=== PATIENT | male | born 1995 | race Caucasian/White ===

== ENCOUNTER 2017-09-15 00:06 | Emergency (ER) | payer BC, SELFPAY ==
[2017-09-15] VITALS (7 sets, daily range): BP systolic 104–113; BP diastolic 52–71; PULSE 104–145; RESP 15–21; TEMP 37.3–38; O2SAT 98–100; BMI 20.9
[2017-09-15] MEDS: 0.9% Normal Saline 1,000 ML 999 ML IV (01:23)
[2017-09-15 01:25] LABS: Bacteria 0 SEEN /hpf (None Seen); Red Blood Cells-Urine 0 SEEN /hpf (0-5); Squamous Epithelial Cells - UA 0 SEEN /hpf (0-5)
[2017-09-15 01:36] LABS: Color, Urine Yellow (Yellow); Glucose, Dipstick Normal (Normal); Ketone-Dipstick Negative (Negative); Leukocyte Esterase-Dipstick 25 /ul (Negative); Nitrite-Dipstick Negative (Negative); Occult Blood-Urine Negative /ul (Negative); Protein-Dipstick 15 mg/dl (Negative); Specific Gravity, Urine 1.025 (1.002-1.030); Urine Bilirubin Dipstick Negative (Negative); Urine Clarity Clear (Clear); Urine Urobilinogen 1 mg/dl (Normal)
[2017-09-15 01:38] LABS: International Normalized Ratio 2.2; Prothrombin Time (Protime)PT. 23.3 SECONDS (11.7-14.9)
[2017-09-15 01:39] LABS: Partial Thromboplast Time 53.4 Seconds (24.1-36.2)
--- NOTE | 2017-09-15 01:40 | RAD_ITS ---
STUDY: X-RAY CHEST REASON FOR EXAM: Male, 21 years old. Fever after chemotherapy. History of large B-cell lymphoma. TECHNIQUE: PA and lateral chest. COMPARISON: None. FINDINGS: Right internal jugular port with the tip in the lower superior vena cava. The lungs are clear and expanded. There is no demonstrated pleural abnormality. No pneumothorax. Normal size heart. Normal mediastinum and chelsey. Normal visualized pulmonary arteries. Normal visualized aortic arch and descending thoracic aorta. Normal visualized thoracic spine. Normal visualized ribs, clavicles, and shoulders. There is no demonstrated abnormality of the visualized soft tissue structures of the upper abdomen. RAD/Chest PA and Lateral IMPRESSION: No acute cardiopulmonary disease. Lungs are clear. Electronically Signed: Trace Daigle MD at 2:23 EST , Service support ,
[2017-09-15 01:41] LABS: Absolute Lymphocyte Count 0.12 X10^3/ul (0.83-4.51); Absolute Neutrophil Count 0.1 X10^3/uL (2.0-7.7); Hematocrit 19.6 % (40-54); Hemoglobin 6.6 g/dl (13.0-16.5); Lymphocyte # 0.12 X10^3/ul (4.0); Mean Corp Hgb Conc 33.7 g/gl (32-36); Mean Corpuscular Hgb 28.6 pg (27.0-32.0); Mean Corpuscular Volume 84.8 fL (80-94); Mean Platelet Vol. 10.5 fl (6.2-12.0); Monocyte# 0.03 X10^3/uL; Neutrophil # 0.05 X10^3/uL (2.7-7.7); RBC Distribution Width CV 14.1 % (11.6-14.6); RBC Distribution Width SD 43.6 fl (35.1-43.9); Red Blood Count 2.31 M/mm3 (4.6-6.2)
[2017-09-15 01:49] LABS: White Blood Count 0.2 K/mm3 (4.4-11.0)
[2017-09-15 01:50] LABS: Differential Indicated SCAN CRITERIA MET; POSITIVE COUNT YES; POSITIVE DIFFERENTIAL YES; POSITIVE MORPHOLOGY YES; Platelet Count 41 K/mm3 (150-450)
[2017-09-15 02:03] LABS: Mucous, Urine RARE /hpf (<or=2+); White Blood Cells 0-5 SEEN /hpf (0-5)
[2017-09-15 02:08] LABS: Differential Comment SCANNED
[2017-09-15 02:09] LABS: ALB/GLOB Ratio 1.4 RATIO (0.9-2.4); AST(SGOT) 8 U/L (15-37); Alanine Aminotransfer ALT/SGPT 35 U/L (16-61); Albumin, Serum 3.9 g/dL (3.2-5.0); Alkaline Phosphatase 71 U/L (45-117); Anion Gap 9 (5-15); BUN 16 mg/dL (7-18); BUN/Creat Ratio 16.4 RATIO (10-20); Calcium,Total 8.5 mg/dL (8.5-10.1); Chloride 99 mmol/L (98-107); Creatinine, Serum 0.98 mg/dL (0.70-1.30); EST Glomerular Filtration Rate 101 mL/min (>60); Est Glom Filt Rate - Afr Amer 122 mL/min (>60); Estimated Creatinine Clearance 107.72 ml/min; Globulin 2.8 g/dL (2.2-4.2); Glucose 128 mg/dL (74-106); Magnesium 1.9 mg/dL (1.6-2.6); Phosphorus 4.9 mg/dL (2.5-4.9); Potassium 3.7 mmol/L (3.5-5.1); Protein, Total 6.7 g/dL (6.4-8.2); Sodium Level 135 mmol/L (136-145)
[2017-09-15 02:25] LABS: Lactic Acid 2.2 mmol/L (0.4-2.0)
--- NOTE | 2017-09-15 02:25 | ED.RN ---
MD AWARE OF LACTIC ACID 2.2
--- NOTE | 2017-09-15 03:15 | NURSING ---
REPAGED DR. GRIFFIN (VENDOR SPECIALIST FOR DR. POWELL)
--- NOTE | 2017-09-15 03:17 | NURSING ---
DR. GRIFFIN CALLED BACK
--- NOTE | 2017-09-15 03:39 | ED.VISSUMM ---
- ER Visit Summary Date of Service: 09/15/17 Chief Complaint: Fever History of Present Illness: The patient is a 21 M who has a history of large B-cell lymphoma. He sees Dr. Woo at [facility] for this. Reports his last dose of chemo was 5 days ago. His last dose of Neulasta was 3 days ago. He developed a fever today to 100.4?. He complains of a sore throat that is 6 out of 10 in severity. He denies any ear pain, cough, shortness of breath, abdominal pain, nausea, vomiting, diarrhea, dysuria, rash, headache, or other complaints. Physical Examination: Vitals: Stable. Afebrile. General: Well-nourished and well-developed. Head: Normocephalic atraumatic. HEENT: Pharyngeal erythema. No tonsillar exudate or enlargement. Neck: Supple, no lymphadenopathy. No JVD. Nontender. Cardiovascular: Tachycardic regular rhythm. No murmurs. Respiratory: No respiratory distress. Clear to auscultation bilaterally. Abdominal: Soft, nontender, nondistended, normal bowel sounds. No guarding, rebound, or peritoneal signs. Back: Nontender. Extremities: Nontender, no edema. Skin: Normal color, no rash. Neurologic: Alert and oriented ?3. Cranial nerves II through XII are intact. Normal strength and sensation. Psych: Normal affect. Test Results: Chest x-ray is normal. UA is negative. Strep is negative. CBC is marked for white count of 0.2 with 25% segmented neutrophils giving an absolute neutrophil count of 50. H&H is 6.6 and 19.6. Platelets of 41. Chem-7 is marked for sodium 135 and glucose 128. LFTs marked for total bili 1.2 and AST of 8. INR is 2.2. PTT is 53.4. Lactic acid is 2.2. Emergency Department Course and Treatment: Patient was given a dose of meropenem IV and a liter of normal saline. He is resting comfortably. Treatment Plan: She was discussed with Dr. Hancock, call for his oncologist, she states that the patient requires admission for IV antibiotics. I discussed this with the family. He is received all of his cancer care at [facility] He will be transferred there for further evaluation and treatment. Disposition: Transferred in serious condition. Impression: 1. Neutropenic fever. 2. Pancytopenia. 3. Absolute neutrophil count of 50. 4. Large B-cell lymphoma. 5. Severe sepsis. 6. Critical care time 30 minutes. This note was generated with [employer] dictation software. It may contain incorrect words, spelling, and punctuation that were not noted in review of the chart prior to signing ED Disposition - Plan for ED Patient: Chief Complaint: Fever Referrals: Jayme Rodgers DO [Primary Care Provider] -
--- NOTE | 2017-09-15 03:52 | ED.DCSUM_ITS ---
- ER Visit Summary Date of Service: 09/15/17 Chief Complaint: Fever History of Present Illness: The patient is a 21 M who has a history of large B- cell lymphoma. He sees Dr. Woo at [facility] for this. Reports his last dose of chemo was 5 days ago. His last dose of Neulasta was 3 days ago. He developed a fever today to 100.4?. He complains of a sore throat that is 6 out of 10 in severity. He denies any ear pain, cough, shortness of breath, abdominal pain, nausea, vomiting, diarrhea, dysuria, rash, headache, or other complaints. Physical Examination: Vitals: Stable. Afebrile. General: Well-nourished and well-developed. Head: Normocephalic atraumatic. HEENT: Pharyngeal erythema. No tonsillar exudate or enlargement. Neck: Supple, no lymphadenopathy. No JVD. Nontender. Cardiovascular: Tachycardic regular rhythm. No murmurs. Respiratory: No respiratory distress. Clear to auscultation bilaterally. Abdominal: Soft, nontender, nondistended, normal bowel sounds. No guarding, rebound, or peritoneal signs. Back: Nontender. Extremities: Nontender, no edema. Skin: Normal color, no rash. Neurologic: Alert and oriented ?3. Cranial nerves II through XII are intact. Normal strength and sensation. Psych: Normal affect. Test Results: Chest x-ray is normal. UA is negative. Strep is negative. CBC is marked for white count of 0.2 with 25% segmented neutrophils giving an absolute neutrophil count of 50. H&H is 6.6 and 19.6. Platelets of 41. Chem- 7 is marked for sodium 135 and glucose 128. LFTs marked for total bili 1.2 and AST of 8. INR is 2.2. PTT is 53.4. Lactic acid is 2.2. Emergency Department Course and Treatment: Patient was given a dose of meropenem IV and a liter of normal saline. He is resting comfortably. Treatment Plan: She was discussed with Dr. Hancock, call for his oncologist, she states that the patient requires admission for IV antibiotics. I discussed this with the family. He is received all of his cancer care at [facility]. He will be transferred there for further evaluation and treatment. Disposition: Transferred in serious condition. Impression: 1. Neutropenic fever. 2. Pancytopenia. 3. Absolute neutrophil count of 50. 4. Large B-cell lymphoma. 5. Severe sepsis. 6. Critical care time 30 minutes. This note was generated with [employer] dictation software. It may contain incorrect words, spelling, and punctuation that were not noted in review of the chart prior to signing ED Disposition - Plan for ED Patient: Chief Complaint: Fever Referrals: Jayme Rodgers DO [Primary Care Provider] -
--- NOTE | 2017-09-15 04:16 | NURSING ---
[facility] NO AVAILABILITY TILL AFTER 7 AM [facility] WILL BE HERE WITH IN 45 MINUTES TO 1 HOUR
[2017-09-15 05:23] LABS: Reflex Lactate? Y
[2017-09-17 09:59] LABS: Pathologist Review Reviewed
== END 2017-09-15 05:27 | disposition short-term general hospital (02) ==
LOC: ED 00:48
PROVIDERS: Emergency Provider Emergency Medicine; Family Provider Pediatrics; PCP Family Medicine
DX: A41.9 Sepsis, unspecified organism (principal); R65.20 Severe sepsis without septic shock; D70.9 Neutropenia, unspecified; R50.81 Fever presenting with conditions classified elsewhere; C83.30 Diffuse large B-cell lymphoma, unspecified site
CPT/HCPCS: 71046; 80053; 81001; 83605; 83735; 84100; 85025; 85610; 85730; 87040; 87086; 87880; 96361; 96365; 99284; J2185; J7030; A4216

== ENCOUNTER 2019-11-07 18:44 | Emergency (ER) | payer BC, SELFPAY ==
[2019-11-07 18:45] VITALS: BP 154/82; PULSE 87; RESP 16; TEMP 37.6; O2SAT 99; BMI 24.3
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
[2019-11-07] MEDS: Diphth,Pertuss(Acell),Tet Vac 0.5 ML Vial IM (19:19)
[2019-11-07] MEDS: HYDROcodone Bitartrate/Apap 5/325 Tablet PO (19:24)
[2019-11-07 19:37] VITALS: RESP 16
== END 2019-11-07 19:39 | disposition home or self-care (01) ==
LOC: ED 19:09
PROVIDERS: Emergency Provider Emergency Medicine; PCP Pediatrics
DX: T24.001A Burn of unspecified degree of unspecified site of right lower limb, except ankle and foot, initial encounter (principal); T24.002A Burn of unspecified degree of unspecified site of left lower limb, except ankle and foot, initial encounter; T20.00XA Burn of unspecified degree of head, face, and neck, unspecified site, initial encounter; X03.0XXA Exposure to flames in controlled fire, not in building or structure, initial encounter; Y92.9 Unspecified place or not applicable; Y99.9 Unspecified external cause status
CPT/HCPCS: 90471; 90715; 99283